=== PATIENT | male | born 1965 | race Caucasian/White ===

== ENCOUNTER 2021-07-16 08:33 | Outpatient (CLI) | payer BC ==
[2021-07-16 16:07] LABS: CHOL/HDL RATIO 3.6 (<5.0); CHOLESTEROL 158 mg/dL; HDL CHOLESTEROL 44 mg/dL; LDL CHOLESTEROL,CALCULATED 103 mg/dL; LDL/HDL RATIO 2.3 (<3.6); TRIGLYCERIDES 53 mg/dL; VLDL CHOLESTEROL 11 mg/dL
[2021-07-17 12:46] LABS: HIV AG/AB 4TH GEN NON-REACTIVE (NON-REACTIVE)
[2021-07-17 12:55] LABS: HEPATITIS C ANTIBODY NON-REACTIVE (NON-REACTIVE)
== END 2021-07-16 08:34 | disposition home or self-care (01) ==
LOC: LAB.S 08:33
PROVIDERS: ATTEND Internal Medicine
DX: E78.5 Hyperlipidemia, unspecified (principal); Z11.59 Encounter for screening for other viral diseases; Z11.4 Encounter for screening for human immunodeficiency virus [HIV]
CPT/HCPCS: 36415; 80061; 83721; 86803; 87389

== ENCOUNTER 2022-12-21 08:00 | Outpatient (CLI) | payer BC ==
--- NOTE | 2022-12-21 20:57 | XRAY Report ---
PROCEDURE: Chest 2 View X-Ray INDICATIONS: CONTUSION OF FRONT WALL OF THORAX TECHNIQUE: 2 views of the chest were obtained. COMPARISON: None. FINDINGS: Surgical changes and devices: None. Lungs and pleura: No pleural effusions or pneumothorax. Lungs are clear. Mediastinum: Mediastinal contours appear normal. Heart size is normal. Bones and chest wall: No suspicious bony lesions. Overlying soft tissues appear unremarkable. IMPRESSION: Normal two-view chest x-ray Reviewed by: Jeremías Alvarez MD on 12/21/2022 7:23 PM [email or web address] Approved by: Jeremías Alvarez MD on 12/21/2022 7:23 PM AKDT Station ID: [id number]
== END 2022-12-21 23:59 | disposition home or self-care (01) ==
LOC: DI.S 08:00
PROVIDERS: ATTEND Physician Assistant
DX: S20.219A Contusion of unspecified front wall of thorax, initial encounter (principal)